=== PATIENT | male | born 1980 | race Caucasian/White ===

== ENCOUNTER 2020-10-12 13:12 | Emergency (ER) | payer OTHER ==
[2020-10-12 13:39] VITALS: BP 115/85; PULSE 83; TEMP 98.7; BMI 27.4
[2020-10-12] MEDS ORDERED: FAMOTIDINE 10 MG TABLET PO ONE (14:13)
[2020-10-12] MEDS ORDERED: SODIUM CHLORIDE 0.9% 500 ML INFUS.BAG IV ONE (14:14)
[2020-10-12] MEDS ORDERED: MAG HYDROX/AL HYDROX/SIMETH 30 ML UNIT-DOSE CUP PO ONE (14:14)
[2020-10-12] MEDS ORDERED: FAMOTIDINE 20 MG TABLET ONE (14:18)
[2020-10-12] MEDS ORDERED: MAG HYDROX/AL HYDROX/SIMETH 30 ML UNIT-DOSE CUP ONE (14:19)
[2020-10-12 14:58] LABS: BASO % 0.7 % (0-2.0); EOS % 0.7 % (0-4.5); HEMATOCRIT 48.3 % (35.4-49); HEMOGLOBIN 16.8 GM/dL (11.7-16.9); LYMPH % 24.1 % (8-40); MCH 32.2 pg (25.7-33.7); MCHC 34.8 g/dl (32.0-35.9); MEAN CELL VOLUME 92.6 fl (80-96); MEAN PLT VOLUME 7.6 fl (7.5-11.1); MONO % 7.7 % (3.8-10.2); NEUT % 66.8 % (42.8-82.8); PLATELET COUNT 238 10^3/uL (134-434); RBC 5.21 M/mm3 (4.00-5.60); RDW 13.9 % (11.9-15.9); WHITE BLOOD COUNT 9.3 K/mm3 (4.0-10.0)
[2020-10-12] MEDS ORDERED: ACETAMINOPHEN 1000 MG/100 ML VIAL (NON FORMULARY) IVPB ONE (15:00)
[2020-10-12 15:11] LABS: CALCIUM 8.7 mg/dL (8.5-10.1)
[2020-10-12 15:12] LABS: ALBUMIN 3.8 g/dl (3.4-5.0); BLOOD UREA NITROGEN 23.6 mg/dL (7-18)
[2020-10-12 15:15] LABS: CREATININE 0.9 mg/dL (0.55-1.3)
[2020-10-12 15:16] LABS: BILIRUBIN,TOTAL 0.4 mg/dL (0.2-1)
[2020-10-12] MEDS ORDERED: ACETAMINOPHEN INJECTION 100 ML IVPB ONE (15:16)
[2020-10-12 15:17] LABS: TOT PROT 7.3 g/dl (6.4-8.2)
[2020-10-12] MEDS ORDERED: morphine CARPU-JECT 2 MG/1 ML DISP.SYRIN IVPUSH ONE (16:45)
[2020-10-12] MEDS ORDERED: MORPHINE SULFATE 2 MG/ML VIAL ONE (16:54)
[2020-10-12 17:02] LABS: URINE APPEARANCE CLEAR; URINE BILIRUBIN NEGATIVE (NEGATIVE); URINE COLOR YELLOW; URINE GLUCOSE (UA) NEGATIVE (NEGATIVE); URINE KETONE TRACE (NEGATIVE); URINE LEUK ESTERASE NEGATIVE (NEGATIVE); URINE NITRITE NEGATIVE (NEGATIVE); URINE PROTEIN NEGATIVE (NEGATIVE); URINE UROBILINOGEN 0.2 mg/dL (0.2-1.0)
== END 2020-10-12 19:46 | disposition home or self-care (01) ==
LOC: JER 13:12
PROC: 3E033NZ Introduction of Analgesics, Hypnotics, Sedatives into Peripheral Vein, Percutaneous Approach (ICD-10-PCS; principal; 2020-10-12)
PROC: 3E033GC Introduction of Other Therapeutic Substance into Peripheral Vein, Percutaneous Approach (ICD-10-PCS; 2020-10-12)
DX: K51.90 Ulcerative colitis, unspecified, without complications (principal)
CPT/HCPCS: 36415; 74177-TC; 80053; 81003; 82272; 83690; 85025; 96374; 96375; 99285-25; J0131; Q9967